=== PATIENT | male | born 1970 | race Caucasian/White ===

== ENCOUNTER → 2016-10-28 | Outpatient (CLI) | payer OTHER ==
[~2016-10-28] MED LIST: COZAAR25 MG PO; DILTIAZEM 24HR240 M1 PO; FLONASE ALLER15.8 ML; KEFLEX500 MG PO; METHADONE HCL T10 MG PO; NEURONTIN 400400 MG PO; NORCO 5-325 TA1 EACH PO; NORCO 7.5-3251 EACH PO; VITAMIN C 500500 MG PO
== END ==
LOC: MRI 10-24 13:00 → KOH-I 10:10
DX: M54.5 Low back pain (principal); M25.551 Pain in right hip
CPT/HCPCS: 73721